=== PATIENT | male | born 1945 ===

== ENCOUNTER 2019-02-11 10:08 | Inpatient (IN) | payer MEDICARE, BC ==
[~2019-02-11] VITALS: Ht 175.3 cm; Wt 79.4 kg
[~2019-02-11 10:08] MED LIST: ARIP10 PO; ASPI325 PO; ASPI81CH PO; ATOR40TA PO; CHOL10002 PO; CYCL10 PO; DOC250 PO; EZET10; FISH1000; Fish Oil 10001000 MG PO; HYDACE10B PO; LISI5; METO25ER PO; MULVITMIND PO; Omeprazole20 M1 PO; PRAZ2 PO; PREG200 PO; Prinivil10 MG PO; QUET100 PO; ROSU5; SENN187 PO; SERT25 PO
[2019-02-11 10:35] LABS: Calcium, Ionized (POC) 1.16 mmol/L (1.10-1.46); Chloride (POC) 103 mmol/L (98-108); Creatinine (POC) 0.8 mg/dL (0.8-1.3); Glucose (ISTAT POC) 102 mg/dL (70-99); Hemoglobin (POC) 12.6 g/dL (13.5-17.5); Potassium (POC) 3.7 mmol/L (3.5-5.5); Sodium (POC) 140 mmol/L (135-148); Total CO2 (POC) 24 mmol/L (21-32)
[2019-02-11 10:37] LABS: BASOPHILS ABSOLUTE AUTO 0.01 K/mm3 (0.00-0.23); BASOPHILS PERCENT AUTO 0 % (0-2); EOSINOPHILS ABSOLUTE AUTO 0.03 K/mm3 (0.00-0.68); EOSINOPHILS PERCENT AUTO 1 % (0-6); Hematocrit 38.3 % (37.0-53.0); Hemoglobin 13.1 g/dL (13.5-17.5); IMMATURE GRAN ABSOLUTE AUTO 0.01 K/mm3 (0.00-0.10); IMMATURE GRAN PERCENT AUTO 0 % (0-1); LYMPHOCYTES ABSOLUTE AUTO 0.86 K/mm3 (0.84-5.20); LYMPHOCYTES PERCENT AUTO 22 % (21-46); MONOCYTES ABSOLUTE AUTO 0.35 K/mm3 (0.16-1.47); MONOCYTES PERCENT AUTO 9 % (4-13); Mean Corpuscular HGB 30.7 pg (26.0-34.0); Mean Corpuscular HGB Conc 34.2 g/dL (31.5-36.5); Mean Corpuscular Volume 90 fL (80-100); Mean Platelet Volume 11.3 fL (9.1-12.4); NEUTROPHILS ABSOLUTE AUTO 2.64 K/mm3 (1.96-9.15); NEUTROPHILS PERCENT AUTO 68 % (41-73); Platelet Count 97 K/mm3 (150-400); RDW Coefficient Variation 12.8 % (11.7-14.2); RDW Standard Deviation 41.8 fL (35.1-46.3); Red Blood Cell Count 4.27 M/mm3 (4.30-5.90)
[2019-02-11 11:01] LABS: Alanine Aminotransfer (ALT/SGP 20 U/L (12-78); Albumin, Blood 3.8 g/dL (3.4-5.0); Albumin/Globulin Ratio 1.2 (0.8-1.8); Alk Phos 85 U/L (50-136); Anion Gap 8 mmol/L (6-16); Aspartate Aminotrans (AST/SGOT 13 U/L (12-37); Bilirubin, Total 0.9 mg/dL (0.1-1.0); Blood Urea Nitrogen 8 mg/dL (8-24); CO2, Blood 25 mmol/L (21-32); Calcium, Blood 8.3 mg/dL (8.5-10.1); Chloride, Blood 108 mmol/L (98-108); Creatinine, Blood 0.73 mg/dL (0.60-1.20); Globulin, Blood 3.2 g/dL (2.2-4.0); Glomerular Filtration Rate >60 (60-); Glucose, Blood 98 mg/dL (70-99); Potassium, Blood 3.7 mmol/L (3.5-5.5); Sodium, Blood 141 mmol/L (136-145); Troponin I <0.015 ng/mL (0.000-0.040)
[2019-02-11] MEDS ORDERED: Zantac150 MG PO (14:33)
[2019-02-11] MEDS ORDERED: NITR.4SL SL (14:51)
[2019-02-11] MEDS ORDERED: Synthroid25 MCG PO (14:53)
[2019-02-11] MEDS ORDERED: Flonase 0.05% N16 GM (14:54)
--- NOTE | 2019-02-11 16:00 | NUR ---
ASSUMED CARE: PT ADMITTED TO ICU 14 FOR VTACH. HE HAS HAD A FEW EPISODES OF VTACH SINCE ARRIVAL, 5 BEAT RUN AT MOST SO FAR. DR HARKINS CAME TO SEE PT AND DISCUSSED PLAN OF CARE WITH PT. LIDOCAINE GTT PER ORDERS AT THIS TIME. REMAINS WITH HR IN 40S-50S. DENIES CP
--- NOTE | 2019-02-11 18:37 | NUR ---
SHIFT SUMMARY: PT RESTING IN BED. AWARE TO CALL FOR ASSISTANCE AND MINIMAL AMBULATION. LIDOCAINE GTT REMAINS. HR IN 40S-50S. DENIES CP OR SOB AT THIS TIME. PLAN FOR NPO AFTER MN FOR ANGIO IN AM. PLEASANT, COOPERATIVE. SMALL RUNS OF VTACH AND ECTOPY NOTED AT TIMES BUT NOT SUSTAINING. NO ACUTE NEEDS OR CONCERNS AT THIS TIME
--- NOTE | 2019-02-11 19:15 | NUR ---
ASSUMING CARE OF PT AT THIS TIME. PT REPORT RECEIVED AT BEDSIDE WITH OFFGOING NURSE, ZEE WOLFE. PT LAYING IN BED, READING UPON ENTERING THE ROOM. VS STABLE - SEE VS FS. PT DOES NOT APPEAR TO BE IN DISTRESS AT THIS TIME. WILL REVIEW PLAN OF CARE.
--- NOTE | 2019-02-11 19:30 | NUR ---
ASSESSMENT PT CALM, QUIET, COOPERATIVE, RESPONDS TO VERBAL STIMULI, SPONT OPENS EYES, TALKS AND ANSWERS QUESTIONS APPRORPIATELY, A&O X4, USES [place] LIGHT APPROPRIATELY. PT C/O SLIGHT ANXIETY D/T BEING IN HOSPITAL. SENSATION INTACT. DENIES N/T. PT MEZA. NO WEAKNESS NOTED. PT REPOSITIONS SELF IN BED. PT DENIES PAIN/DISCOMFORT. NO S/SX OF PAIN/DISCOMFORT NOTED. LUNGS CLEAR. PT ON RA. OXY SAT >95%. RR 14. DENIES SOB. NO COUGHING. AFEBRILE. SB WITH FREQ PVC'S. HR 50'S. BP STABLE - SEE VS FS. LIDOCAINE DRIP AT 0.5 MG/MIN (3.75 ML/HR). DENIES CP. STRONG PULSES. WARM, PINK SKIN. ACTIVE BT X4 QUADRANTS. ABD SOFT, NONTENDER, MILD DIST (PT STATES ABD DIST IS NORMAL). NO N/V. NO BM. PT VOIDS IN URINAL WITHOUT ASSISTANCE. YELLOW CLEAR URINE NOTED. PIV X2. PT TOLERATING PO FLUIDS. PER REPORT - PT NPO AT MIDNIGHT FOR SCHEDULE PROVIDER NETWORK ANALYST TOMORROW AM. 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 CALL OUT TO ROYAL PENA AT THIS TIME. WAITING FOR CALL BACK FROM ROYAL PENA AT THIS TIME.
--- NOTE | 2019-02-11 19:40 | NUR ---
ROYAL PENA NP CALLED ICU AT THIS TIME. INFORMED ROYAL PENA OF PT'S STATUS, VS (SEE VS FS), LIDOCAINE DRIP, AND HOME MEDICATION LIST. ALSO INFORMED ROYAL PENA OF PT'S REQUEST FOR HIS HOME DOSAGES OF PRAZOSIN, LYRICA, AND SEROQUEL. ROYAL PENA INSTRUCTED TO ORDER PRAZOSIN, LYRICA, AND SEROQUEL PER RECONCILED MEDICATION LIST. REVIEWED RECONCILED MEDICATIONS LIST WITH PT. ORDERED PRAZOSIN, LYRICA, AND SEROQUEL PER RECONCILED MEDICATION LIST. VERIFIED ORDER WITH AIDEN CAMERON. WAITING FOR VERIFICATON OF MEDICATION LIST FROM PHARMACY AT THIS TIME.
--- NOTE | 2019-02-12 01:08 | NUR ---
DR. HARKINS PT ON LIDOCAINE DRIP 0.5 MG/MIN (3.75 ML/HR). PT CONVERTING BETWEEN NSR WITH FREQ PVC'S AND 7-9 BEATS OF VTACH. PT DENIES CP, PALPITATION, DIZZINESS DURING EPISODES OF VTACH. CALLED DR. HARKINS'S PAGER AT [address] HARKINS'S CELL PHONE AT 0108. UPDATED DR[address] HARKINS REGARDING PT'S VS (SEE VS FS), PT'S STATUS, AND LIDOCAINE DRIP. DR. HARKINS INSTRCUTED TO ORDER LIDOCAINE DRIP AT 1 MG/MIN (7.5 ML/HR). WAITING FOR VERIFICATION OF MEDICATION FROM PHARMACY AT THIS TIME.
[2019-02-12 03:27] LABS: Hematocrit 35.7 % (37.0-53.0); Hemoglobin 12.3 g/dL (13.5-17.5); Mean Corpuscular HGB 30.7 pg (26.0-34.0); Mean Corpuscular HGB Conc 34.5 g/dL (31.5-36.5); Mean Corpuscular Volume 89 fL (80-100); Mean Platelet Volume 10.8 fL (9.1-12.4); Platelet Count 93 K/mm3 (150-400); RDW Coefficient Variation 12.5 % (11.7-14.2); Red Blood Cell Count 4.01 M/mm3 (4.30-5.90); White Blood Cell Count 4.34 K/mm3 (4.00-11.30)
[2019-02-12 03:41] LABS: Anion Gap 7 mmol/L (6-16); Blood Urea Nitrogen 15 mg/dL (8-24); Bun/Creatinine Ratio 17.6 (12.0-20.0); CO2, Blood 26 mmol/L (21-32); Calcium, Blood 8.5 mg/dL (8.5-10.1); Chloride, Blood 110 mmol/L (98-108); Creatinine, Blood 0.85 mg/dL (0.60-1.20); Glomerular Filtration Rate >60 (60-); Glucose, Blood 93 mg/dL (70-99); Magnesium, Blood 2.1 mg/dL (1.6-2.4); Sodium, Blood 143 mmol/L (136-145)
--- NOTE | 2019-02-12 03:55 | NUR ---
DR. HARKINS PT ON LIDOCAINE DRIP 1 MG/MIN (7.5 ML/HR). PT CONVERTING BETWEEN NSR WITH FREQ PVC'S AND 7-9 BEATS OF VTACH. PT DENIES CP AND DIZZINESS DURING EPISODES OF VTACH. PT C/O OCC PALPITATIONS DURING EPISODES OF VTACH. CALLED DR. HARKINS AT THIS TIME. UPDATED DR. HARKINS REGARDING PT'S VS (SEE VS FS), PT STATUS, AND LIDOCAINE DRIP. DR. HARKINS ORDERED METOPROLOL 12.5 MG BID WITH THE FIRST DOSAGE TO BE STARTED NOW. DR. HARKNIS INSTRUCTED TO HOLD METOPROLOL FOR HR <50. WAITING FOR VERIFICATION OF MEDICATION FROM PHARMACY AT THIS TIME.
--- NOTE | 2019-02-12 04:33 | NUR ---
SHIFT ASSESSMENT PT CALM, QUIET, COOPERATIVE, RESPONDS TO VERBAL STIMULI, SPONT OPENS EYES, TALKS AND ANSWERS QUESTIOSN APPOPRATELY, A&O X4, USES CALL LIGHT APPROPRIATELY. LESS ANXIETY THIS AM. SENSATIN INTACT. DENIES N/T. PT MEZA. NO WEAKNESS NOTED. PT REPOSITIONS SELF IN BED. PT DENIES PAIN/DISCOMFORT. NO S/SX OF PAIN/DISCOMFORT. DENIED DIZZINESS. LUNGS CLEAR. PT ON RA. OXY SAT >90%. RR 12 TO 20'S. DENIES SOB. NO COUGHING. AFEBRILE. SB TO SR WITH FREQ PVC'S AND BBB. FREQ RUNS OF VTACH NOTED. LIDOCAINE DRIP AT 1 MG/MIN (7.5 ML/HR). METOPROLOL PO ADMINISTERED THIS AM. DENIES CP. C/O OCC PALPITATIONS DURING EPISODES OF VTACH. STRONG PULSES. WARM, PINK SKIN. ACTIVE BT X4 QUADRANTS. ABD SOFT, NONTENDER, MILD DIST (PT STATES ABD DIST IS NORMAL). NO N/V. NO BM. PT VOIDS IN URINAL WITHOUT ASSISTANCE. YELLOW CLEAR URINE NOTED. PT NPO AT MIDNIGHT FOR SCHEDULED CASEY SAW OPERATOR PROCEDURE THIS AM. PIV X2 - 18G LEFT AC AND 18G RIGHT AC. WILL CONT TO MONITOR PT AND WILL PROVIDE BEDSIDE REPORT TO ONCOMING NURSE THIS AM.
--- NOTE | 2019-02-12 07:53 | NUR ---
0700-ASSUMED CARE OF PT. PT IS ALERT AND ORIENTED. DENIES PAIN AT THIS TIME. PT IS NPO AT THIS TIME. FOR ELECTRICAL INSTRUMENT REPAIRER THIS MORNING. ON LIDOCAINE DRIP @ 1MG/MIN. 0745-ELECTRICAL INSTRUMENT REPAIRER CREW CAME BY TO TAKE PT TO THE ELECTRICAL INSTRUMENT REPAIRER.
--- NOTE | 2019-02-12 09:31 | NUR ---
0913-BACK IN THE ROOM AT THIS TIME. R GROIN ACCESS SITE HAS A LITTLE BIT OF OOZE TO THE GAUZE BUT NO HEMATOMA, SOFT TO TOUCH. NO PROFUSE BLEEDING NOTED. 0991-DR. HARKINS AT BEDSIDE AT THIS TIME. TALKING TO PLAN OF TREATMENT.
[2019-02-12] MEDS ORDERED: Coq-10100 MG PO (10:39)
--- NOTE | 2019-02-12 11:06 | NUR ---
MORE V-TACH RUN OCCURENCES WHEN LIDOCAINE DRIP WAS DECREASED TO 0.5MG/MIN THUS INCREASED BACK TO 1MG/MIN. NOTED THAT V-TACH OCCURENCES WHEN PATIENT IS ASLEEP. PT IS ASYMPTOMATIC.
--- NOTE | 2019-02-12 16:22 | NUR ---
8855-SPOKE WITH DR. HARKINS. INFORMED HIM THAT LIDOCAINE DRIP WAS TURNED MARCEL @ 1550 AND THAT PT HAD RECEIVED THE FIRST DOSE OF MEXILITINE @ 1400. HE WAS ALSO INFORMED THAT V-TACH RUNS FREQUENCY HAD INCREASED WHEN THE LIDOCAINE DRIP WAS DECREASED TO 0.5MG/MIN BUT WHEN LIDOCAINE WAS INCREASED BACK TO 1MG/MIN V-TACH RUNS WAS LESS FREQUENT. PT WAS THEN ASYMPTOMATIC. DENIES PAIN. PT STATED " I FEEL GREAT!" PT IS SITTING ON THE CHAIR AT THIS TIME. CURRENTLY PT PVCs ARE NOTED.
--- NOTE | 2019-02-12 18:51 | NUR ---
SHIFT SUMMARY: PT IS ALERT AND ORIENTED. STILL OCCASSIONAL PVCs BUT NO MORE RUNS OF V-TACH NOTED SINCE 1600. STILL BRADYCARDIC. STILL WAITING TO BE TRANSFERED TO A HIGHER LEVEL OF CARE. R GROIN ACCESS SITE IS STABLE. DENIES CHEST PAIN OR ANY TYPE OF PAIN AT THIS TIME.
--- NOTE | 2019-02-12 19:30 | NUR ---
ASSUMED CARE OF PT, BEDSIDE REPORT RECEIVED. PT IS ALERT AND ORIENTED SITTING UP IN RECLINER AT BEDSIDE. DENIES CP/PRESSURE, DENIES INCREASING SOB/DYSPNEA ALTHOUGH DOES ADMIT TO FEELING SLIGHTLY SOB THAT HAS BEEN ONGOING "SINCE THIS WHOLE THING STARTED" DENIES ANY WORSENING OF SOB. LUNGS CLEAR THROUGHOUT, SPEAKING IN FULL SENTANCES, SATS HIGH 90S ON ROOM AIR, RESP RATE WNL, NO INCREASED WORK OF BREATHING IS NOTED. HR IRREG SECONDARY TO PVCS, S1, S2 PRESENT, BP STABLE, PULSES PRESENT X 4 EXTREM, FULL BILAT UPPER RADIAL PULSES, FAINT BILAT LOWER EXTREM, TOES ARE COOL TO THE TOUCH, PT STATES THAT HE FEELS COLD, AGAIN DENIES NUMBNESS, IS ABLE TO STATE ACCURATELY WHICH TOES ARE TOUCHED DURING ASSESSMENT, CAP REFILL 4 SECONDS. ABD DISTENDED, NORMOACTIVE BOWEL TONES, PT STATES HX OF GASTROPARESIS, ABD SOFT. STATES HAS BEEN VOIDING IN THE URINAL, DOES WELL WHILE IN CHAIR. DENIES NEEDS AT THIS TIME. LEFT AC IV IS NOTED WITH SOME REDNESS PROXIMAL TO INSERTION, IV DC'D CATH INTACT, PT TOLERATED WELL.
--- NOTE | 2019-02-13 04:06 | NUR ---
PT NOTED TO HAVE 8 BEAT RUN OF V-TACH, APPEARED TO BE SLEEPING ON ARRIVAL TO ROOM, PT WAS NOTED TO BE MINIMALLY ROLLED TO LEFT SIDE, AROUSES EASILY TO VERBAL STIMULI, PT DENIES CP/PRESSURE, DENIES INCREASING SOB/DYSPNEA, DENIES DIZZINESS/VERTIGO, DENIES PALPITATIONS. 3 BEAT RUN NOTED ON MONITOR WHILE AT BEDSIDE, PT DENIES AWARENESS. RADIAL PULSE ASSESSED DURING RUNS OF V-TACH, MOST BEATS ARE NOTED PERFUSING AT THIS TIME. DISCUSSED WITH GAS ENGINE REPAIRER, WILL MONITOR.
--- NOTE | 2019-02-13 04:15 | NUR ---
6, 7-8 BEAT RUNS OF V-TACH SINCE 351 THIS AM, DR HARKINS PAGED AT THIS TIME
--- NOTE | 2019-02-13 04:30 | NUR ---
DR TORIN MALIN
--- NOTE | 2019-02-13 04:44 | NUR ---
PT RESTING QUIETLY PVCS CONTINUE HOWEVER LAST 7 BEAT RUN OF V-TACH IS NOTED AT 0413 THIS AM. DISCUSSED WITH PONY RIDE OPERATOR AND WILL AWAIT RETURN CALL FROM DR HARKINS WITHOUT FURTHER CALLS PLACED TO PAGER AT THIS TIME.
--- NOTE | 2019-02-13 06:34 | NUR ---
PT CONT RESTING QUIETLY, FREQUENT V-TACH BETWEEN 0352 AND 0413, DR HARKINS PAGED X 2 OVER 30 MINUTES. PT WITHOUT EPISODES OF V-TACH DURING THAT 30 MINUTE INTERVAL, 1 EPISODE AT 0536 AND 1 AT 0600, THEN MULTIPLE EPISODES OF 7-8 BEAT RUNS OF V-TACH STARTING AT 0632. PT CONTINUES TO DENY CP/PRESSURE, DENIES INCREASING SOB/DYSPNEA, DENIES DIZZINESS/VERTIGO, STATES THAT HE DOES NOT FEEL ANY PALPITATIONS, BP OBTAINED SEE VITAL SIGNS. PT DID STATE THAT IMMEDIATELY PRIOR THIS RN ENTERING ROOM FOR ASSESSMENT THAT HE WAS STANDING AT BEDSIDE TO VOID. OTHERWISE NO ACUTE CHANGES THIS SHIFT.
--- NOTE | 2019-02-13 07:05 | NUR ---
SPOKE WITH DR HARKINS REGARDING RUNS OF V-TACH, ORDERS RECEIVED. PER DR HARKINS HE HAS NOT RECEIVED A RETURN PHONE CALL FROM [facility] IN [place] REGARDING PT TRANSFER.
--- NOTE | 2019-02-13 07:49 | NUR ---
0700-ASSUMED CARE OF PT. PT IS SLEEPING SO SOUNDLY AT THIS TIME. WILL LET PT SLEEP IN FOR A WHILE. NIGHT RN REPORTED PT HAS NOT GONE TO BED NOT UNTIL AROUND 2 AM THIS MORNING. NOTED TO HAVE A FEW 5-8 BEAT RUNS OF V-TACH. HR 50s-100s.
--- NOTE | 2019-02-13 09:32 | NUR ---
0820-AWAKENED PT FOR BREAKFAST. PT IS ALERT AND ORIENTED. DENIES PAIN AT THIS TIME. PT IS AMBULATING IN THE ROOM. R GROIN ACCESS SITE IS STABLE. NO HEMATOMA, BRUISING, BLEEDING NOTED. OLD SHADOW TO THE QUINTEN DRESSING PRESENT BUT HAS NOT PROGRESSED SINCE SHEATH HAS BEEN PULLED OUT FROM YESTERDAY.
[2019-02-13 10:23] LABS: Anion Gap 10 mmol/L (6-16); Blood Urea Nitrogen 16 mg/dL (8-24); Bun/Creatinine Ratio 18.7 (12.0-20.0); CO2, Blood 25 mmol/L (21-32); Calcium, Blood 8.7 mg/dL (8.5-10.1); Chloride, Blood 105 mmol/L (98-108); Creatinine, Blood 0.86 mg/dL (0.60-1.20); Glomerular Filtration Rate >60 (60-); Glucose, Blood 123 mg/dL (70-99); Potassium, Blood 3.6 mmol/L (3.5-5.5); Sodium, Blood 140 mmol/L (136-145)
--- NOTE | 2019-02-13 10:30 | NUR ---
DR. HARKINS WAS NOTIFIED REGARDING POTASSIUM RESULT. ORDERS RECEIVED. KHALIDA YEN AT BEDSIDE DOING ECHO AT THIS TIME ORDERED.
--- NOTE | 2019-02-13 10:52 | NUR ---
echocardiogram complete
--- NOTE | 2019-02-13 11:22 | NUR ---
1123-PT LEFT FOR [facility] AT THIS TIME VIA [facility]
== END 2019-02-13 11:24 | disposition short-term general hospital (02) | DRG 287 ==
LOC: ER 10:08 → ICUW 14:57
PROVIDERS: Internal Medicine; ADMIT Internal Medicine
PROC: 4A023N7 Measurement of Cardiac Sampling and Pressure, Left Heart, Percutaneous Approach (ICD-10-PCS; principal; 2019-02-12)
PROC: B211YZZ Fluoroscopy of Multiple Coronary Arteries using Other Contrast (ICD-10-PCS; 2019-02-12)
DX: I25.10 Atherosclerotic heart disease of native coronary artery without angina pectoris (principal); I47.2 Ventricular tachycardia; I42.9 Cardiomyopathy, unspecified; I10 Essential (primary) hypertension; Z95.1 Presence of aortocoronary bypass graft; E78.5 Hyperlipidemia, unspecified; K21.9 Gastro-esophageal reflux disease without esophagitis; G56.00 Carpal tunnel syndrome, unspecified upper limb; F31.9 Bipolar disorder, unspecified; K31.84 Gastroparesis; E03.9 Hypothyroidism, unspecified; I25.5 Ischemic cardiomyopathy; D69.6 Thrombocytopenia, unspecified; Z87.891 Personal history of nicotine dependence
CPT/HCPCS: 36415; 71045; 80047; 80048; 80053; 83735; 84484; 85014; 85025; 85027; 93005; 93010; 93308; 93321; 93459; 96365; 96366; 96376; 99152; 99153; 99285-25; C1769; J0282; J1644; J1650; J2001; J2250; J3010; J7030; J7060; Q9967

== ENCOUNTER 2023-12-15 10:32 | Emergency (ER) | payer OTHER ==
[~2023-12-15] VITALS: Ht 172.7 cm; Wt 77.1 kg
[~2023-12-15 10:32] MED LIST changes: +Coq-10100 MG PO; +Flonase 0.05% N16 GM; +NITR.4SL SL; +Pacerone400 MG PO; +Synthroid25 MCG PO; +Zantac150 MG PO
[2023-12-15 11:30] LABS: BASOPHILS PERCENT AUTO 0 % (0-2); EOSINOPHILS ABSOLUTE AUTO 0.05 K/mm3 (0.00-0.68); EOSINOPHILS PERCENT AUTO 1 % (0-6); Hematocrit 38.1 % (37.0-53.0); IMMATURE GRAN ABSOLUTE AUTO 0.02 K/mm3 (0.00-0.10); IMMATURE GRAN PERCENT AUTO 1 % (0-1); LYMPHOCYTES ABSOLUTE AUTO 0.67 K/mm3 (0.84-5.20); LYMPHOCYTES PERCENT AUTO 17 % (21-46); MONOCYTES ABSOLUTE AUTO 0.29 K/mm3 (0.16-1.47); MONOCYTES PERCENT AUTO 8 % (4-13); Mean Corpuscular HGB 30.5 pg (26.0-34.0); Mean Corpuscular HGB Conc 34.1 g/dL (31.5-36.5); Mean Corpuscular Volume 89 fL (80-100); Mean Platelet Volume 11.2 fL (9.1-12.4); NEUTROPHILS ABSOLUTE AUTO 2.86 K/mm3 (1.96-9.15); NEUTROPHILS PERCENT AUTO 74 % (41-73); Platelet Count 92 K/mm3 (150-400); RDW Coefficient Variation 12.8 % (11.7-14.2); RDW Standard Deviation 41.9 fL (35.1-46.3); Red Blood Cell Count 4.26 M/mm3 (4.30-5.90); White Blood Cell Count 3.89 K/mm3 (4.00-11.30)
[2023-12-15 11:46] LABS: Albumin, Blood 3.8 g/dL (3.4-5.0); Albumin/Globulin Ratio 1.2 (0.8-1.8); Bilirubin, Total 0.5 mg/dL (0.1-1.0); Calcium, Blood 8.8 mg/dL (8.5-10.1); Creatinine, Blood 0.69 mg/dL (0.60-1.20); Globulin, Blood 3.3 g/dL (2.2-4.0); Potassium, Blood 3.9 mmol/L (3.5-5.5); Total Protein, Blood 7.1 g/dL (6.4-8.2)
[2023-12-15 13:15] VITALS: BP 129/70
== END 2023-12-15 13:30 | disposition home or self-care (01) ==
LOC: ER 10:32
PROVIDERS: Student in an Organized Health Care Education/Training Program
DX: T83.091A Other mechanical complication of indwelling urethral catheter, initial encounter (principal); N39.0 Urinary tract infection, site not specified; Y73.2 Prosthetic and other implants, materials and accessory gastroenterology and urology devices associated with adverse incidents; Z87.891 Personal history of nicotine dependence; I10 Essential (primary) hypertension; E03.9 Hypothyroidism, unspecified; Z79.82 Long term (current) use of aspirin; Z79.899 Other long term (current) drug therapy; Z88.2 Allergy status to sulfonamides
CPT/HCPCS: 71046; 80053; 83690; 84484; 85025; 93005; 93010